=== PATIENT | male | born 1945 | race Caucasian/White ===

== ENCOUNTER 2022-11-22 11:53 | Emergency (ER) | payer MEDICARE, BC ==
[2022-11-22] MEDS ORDERED: Sodium Chloride 0.9% 2.5 ML Syringe FLUSH PRN ×2 (11:59)
[2022-11-22] MEDS ORDERED: Sodium Chloride 0.9% 10 ML Syringe FLUSH PRN ×2 (11:59)
[2022-11-22] MEDS ORDERED: Sodium Chloride 0.9% 1,000 ML IV ONE (11:59)
[2022-11-22] MEDS ORDERED: Sodium Bicarbonate 8.4% 50 MEQ/50 ML Syringe ONE (12:00)
[2022-11-22] MEDS ORDERED: Calcium Chloride 10% 1 GM/10 ML Syringe ONE (12:00)
[2022-11-22] MEDS ORDERED: Lidocaine 2% 100 MG/5 ML Syringe ONE (12:00)
[2022-11-22] MEDS ORDERED: EPINEPHrine 1:10,000 1 MG/10 ML Syringe ONE ×3 (12:00)
[2022-11-22 12:13] LABS: HEMATOCRIT 52.5 % (38.0-50.0); HEMOGLOBIN 16.6 g/dL (13.0-17.0); MEAN CORPUSCULAR HEMOGLOBIN 31.6 pg (27.0-32.0); MEAN CORPUSCULAR HGB CONC 31.6 g/dL (31.0-37.0); NRBC ABSOLUTE 0 K/uL; NRBC PERCENT 0.5 /100WBC; PLATELET COUNT,PLT 157 K/uL (150-400); RED BLOOD CELL COUNT 5.25 M/uL (4.50-5.90); WHITE BLOOD CELL COUNT,WBC 12.32 K/uL (4.0-11.0)
[2022-11-22 12:20] LABS: INR 2.6 (0.86-1.11)
[2022-11-22 12:35] LABS: BAND ABSOLUTE MAN 0.5; BAND PERCENT MAN 4 %; LYMPHOCYTES ABSOLUTE MAN 2.7 (0.6-2.4); LYMPHOCYTES PERCENT MAN 22 % (16.0-40.0); METAMYELOCYTE ABSOLUTE MAN 0.1; METAMYELOCYTE PERCENT MAN 1 %; MONOCYTES ABSOLUTE MAN 1.2 (0.0-0.8); MONOCYTES PERCENT MAN 10 % (0.0-15.0); SEG NEUTROPHILS ABSOLUTE MAN 7.8 (1.4-5.7); SEG NEUTROPHILS PERCENT MAN 63 % (48.0-80.0)
[2022-11-22 12:39] LABS: A/G RATIO 0.7 (0.9-1.6); ALBUMIN 2.4 g/dL (3.4-5.0); ALKALINE PHOSPHATASE 316 U/L (46-116); BILIRUBIN TOTAL 2.4 mg/dL (0.2-1.0); BLOOD UREA NITROGEN,BUN 28 mg/dL (7.0-18.0); CALCIUM 9.7 mg/dL (8.5-10.1); CARBON DIOXIDE,CO2 15.8 mmol/L (21.0-32.0); CHLORIDE,CL 93 mmol/L (98-107); CREATININE 2.2 mg/dL (0.8-1.3); GLUCOSE RANDOM 60 mg/dL (74-106); LIPASE 88 U/L (73-393); SODIUM,NA 134 mmol/L (136-148)
[2022-11-22 12:45] LABS: ALANINE AMINOTRANSFERASE,ALT 2379 IU/L (14-63); ESTIMATED GFR 30 mL/min (>60); POTASSIUM,K 7.4 mmol/L (3.5-5.1)
[2022-11-22 12:46] LABS: ETHANOL BLOOD MEDICAL < 3.0 mg/dL
[2022-11-22 15:12] LABS: ASPARTATE AMNIOTRANSFERASE,AST 1 IU/L (15-37)
[2022-11-22] MEDS ORDERED: Norepinephrine Bit/D5W Premix 250 ML ONE (16:12)
== END 2022-11-22 13:41 | disposition expired ==
LOC: MW.ED 11:53
DX: I46.9 Cardiac arrest, cause unspecified (principal); I49.01 Ventricular fibrillation; E87.5 Hyperkalemia; K76.89 Other specified diseases of liver; N19 Unspecified kidney failure; Z88.6 Allergy status to analgesic agent; Z79.899 Other long term (current) drug therapy
CPT/HCPCS: 36415; 80053; 80307; 83690; 85025; 85610; 86850; 86900; 86901; 92950; 93005; 99285; J0171; 93010; J3490